=== PATIENT | female | born 1990 | race Caucasian/White ===

== ENCOUNTER → 2021-05-31 | Outpatient (CLI) | payer OTHER ==
[~2021-05-31] VITALS: Ht 167.6 cm; Wt 92.5 kg
== END ==
LOC: OPSV 12:00
DX: D50.9 Iron deficiency anemia, unspecified (principal); Z71.9 Counseling, unspecified
CPT/HCPCS: 96365; J1439; J7030

== ENCOUNTER 2021-11-29 13:17 | Emergency (ER) | payer MEDICAID ==
[2021-11-29 14:13] LABS: RED BLOOD COUNT 3.87 M/UL (4.00-5.10); WHITE BLOOD COUNT 6.3 K/UL (4.5-11.0)
[2021-11-29 14:34] LABS: BUN/CREATININE RATIO 45 (0-10)
[2021-11-29] MEDS ORDERED: PROVERA10 MG PO (17:14)
== END 2021-11-29 17:30 | disposition home or self-care (01) ==
LOC: ER1 13:17
DX: N83.201 Unspecified ovarian cyst, right side (principal); N93.8 Other specified abnormal uterine and vaginal bleeding; Z98.84 Bariatric surgery status; F17.200 Nicotine dependence, unspecified, uncomplicated
CPT/HCPCS: 72170; 76830; 80053; 81001; 83690; 84703; 85025; 99284